=== PATIENT | female | born 1955 | race Caucasian/White ===

== ENCOUNTER → 2018-01-03 07:41 | Outpatient (CLI) | payer BC | END | disposition home or self-care (01) | LOC: D.MRI 12-31 17:00 | DX: S01.81XA Laceration without foreign body of other part of head, initial encounter (principal); X58.XXXA Exposure to other specified factors, initial encounter; Y93.9 Activity, unspecified; Y92.9 Unspecified place or not applicable ==

== ENCOUNTER → 2019-08-21 07:52 | Outpatient (CLI) | payer MEDICARE, BC ==
--- NOTE | 2019-08-28 11:25 | EC ---
PATIENT:GARCIA VILLELA DATE OF SERVICE: 08/21/19 SEX: F MEDICAL RECORD: [id number] DATE OF : 53 [facility] AGE OF PATIENT: 64 ADMISSION DATE: 08/21/19 REFERRING PHYSICIAN: INTERPRETING PHYSICIAN: MARCO A LEE MD ECHOCARDIOGRAM REPORT ECHO CHARGES 4 ECHO COMPLETE Date: 08/21/19 CLINICAL DIAGNOSIS: CAD HX TRACE TR/MR ECHOCARDIOGRAPHIC MEASUREMENTS (adult normal given) AC root (d.<3.7cm) 3.0 cm LV Septum d (<1.2 cm> 1.0 cm Valve Excursion 1.5 cm LV Septum (systole) 1.2 cm Left Atria (s.<4.0cm> 2.8 cm LVPW d(<1.2cm) 1.3 cm RV (d.<2.3cm) 2.3 cm LVPW (sytole) 1.6 cm LV diastole(<5.6CM) 4.7 cm MV E-F(>70mm/sec) cm LV systole 3.7 cm LVOT Diameter 1.8 cm MV exc.(>10mm) 1.7 cm Est.ejection fraction (50-75%) % DOPPLER: LVIT cm/sec A 81.0 cm/sec E 53.0 cm/sec LA cm/sec RVSP 21 mmHg LVOT 87 cm/sec AOP1/2T m/s Asc. Ao 97 cm/sec RVOT 72 cm/sec RA cm/sec PA 109 cm/sec AV Gradient Peak 3.77 mmHg AV Mean 1.92 mmHg AV Area 2.6 cm MV Gradient Peak 4.67 mmHg MV Mean 2.12 mmHg MV Area cm COMMENTS: Health And Safety Trainer: 2 MATTHEW MCLEAN Pen Tender: 3 Dr. Melgar TAPE# PACS Pericardial Effusion N DATE OF SERVICE: Adequate 2D, color flow, spectral Doppler, and M-mode. No LVH. LV internal dimension is normal. Wall motion is normal. EF is greater than or equal to 55%. Aortic valve is tricuspid. No evidence of stenosis by Doppler interrogation. Left atrium is normal. Mitral valve shows no prolapse. Trace MR. Right-sided chambers are grossly normal. Trace TR. TRANSINT:[id number] Voice Confirmation ID: [id number] DOCUMENT ID: [id number] ECHOCARDIOGRAM REPORT [id number] GARCIA VILLELA,MARCO A Swan MD at 1125 CC: [id number] DICTATION DATE: 08/21/19 1310 RESIDENT CARE AIDE: 08/21/19 1532 DEP CLI 08/21/19 [facility] [address] [place] [address]
== END | disposition home or self-care (01) ==
LOC: D.HCCECHO 07:52
PROVIDERS: ATTEND Internal Medicine Interventional Cardiology
DX: I25.10 Atherosclerotic heart disease of native coronary artery without angina pectoris (principal)

== ENCOUNTER → 2019-10-01 11:43 | Outpatient (CLI) | payer MEDICARE, BC ==
[2019-10-01 12:10] LABS: BASOPHILS 0.7 % (0-2); HEMOGLOBIN 17.6 g/dL (12-16); IMMATURE GRANULOCYTES 0.1 % (0-5); LYMPHOCYTES 15.7 % (15-50); MCH 33.1 pg (26.0-34.0); MCHC 35.2 g/dL (31.0-37.0); MCV 94.2 fL (80.0-100.0); MEAN PLATELET VOLUME 9.5 fL (7.4-10.4); MONOCYTES 6.6 % (2-11); NEUTROPHILS 75.9 % (40-80); PLATELET COUNT 261 10x3/uL (130-400); RBC 5.31 10x6/uL (4.00-5.40); RDW 12.5 % (11.5-14.5); WBC 9.1 10x3/uL (4.8-10.8)
[2019-10-03 09:10] LABS: HEPATITIS C ANTIBODY <0.1 S/CO RAT (0.0-0.9)
== END | disposition home or self-care (01) ==
LOC: D.US 11:30
PROVIDERS: ATTEND Internal Medicine Gastroenterology
DX: E78.2 Mixed hyperlipidemia (principal); D75.1 Secondary polycythemia

== ENCOUNTER 2020-06-02 07:10 | Day surgery (SDC) | payer MEDICARE, BC ==
[~2020-06-02] VITALS: Ht 167.6 cm; Wt 67.7 kg
--- NOTE | ~2020-06-02 | HEMODYNAMI ---
PATIENT:GARCIA VILLELA MEDICAL RECORD: [id number] : 53 LOCATION:D.CAT ADMISSION DATE: 06/02/20 Generatedon:06/02/20209:05 Patient name: GARCIA VILLELA Patient #: [id number] SSN: [id number] : 1955 Date of study: 06/02/2020 Page: Of Hemodynamic Procedure Report Patient Data Patient Demographics Procedure consent was obtained First Name: GARCIA Gender: Female Last Name: TIKA : 1955 Middle Initial: L Age: 65 year(s) Patient #: [id number] Race: SSN: [id number] Additional ID: [id number] Contact details Address: [address] [place] [address] [facility] State: [place] City: [place] Zip code: [address] Admission Admission Data Admission Date: 06/02/2020 Admission Time: 7:10 Arrival Date: 06/02/2020 Arrival Time: 0:00 Admit Source: Other Insurance Payor: Medicare [facility] #: [id number] Height (in.): 66 BSA: 1.76 (m2) Height (cm.): 167.64 BMI: 23.94 (kg/m2) Weight (lbs.): 148.31 Weight (kg.): 67.27 Lab Results Lab Result Date: 06/02/2020 Lab Result Time: 0:00 Biochemistry Name Units Result Min Max BUN mg/dl 15 --(--*-)-- 7 18 Creatinine mg/dl 0.8 --(-*--)-- 0.6 1.3 eGFR ml/min 76.26510 *-(----)-- 90 120 NONAFRICAN CBC Name Units Result Min Max Hematocrit % 50 --(--*-)-- 42 54 Hemoglobin g/dl 17.4 --(---*)-- 13.5 17.5 Procedure Procedure Types Cath Procedure Diagnostic Procedure C [facility] w/Coronaries Sedation Charges Moderate Sedation up to 15 minutes Procedure Description Procedure Date Procedure Date: 06/02/2020 Procedure Start Time: 8:50 Procedure End Time: 9:00 Procedure Staff Name Function Junaid Velasquez MD Performing Physician Renetta Stapleton RT Monitor Jenna Anderson RT Scrub Jaycee Bro RN Nurse Procedure Data Cath Procedure Fluoroscopy Diagnostic fluoroscopy Total fluoroscopy Time: 1.3 time: 1.3 min min Diagnostic fluoroscopy Total fluoroscopy dose: 487 dose: 487 mGy mGy Contrast Material Contrast Material Type Amount (ml) Isovue 300 71 Entry Location Entry Primary Successful Side Size Upsize Upsize Entry Closure Succes sful Closure Location (Fr) 1 (Fr) 2 (Fr) Remarks Device Remarks Femoral Right 5 Fr Exoseal artery Estimated blood loss: 5 ml Diagnostic catheters Device Type Used For End Catheter Placement MULTIPACK JL 4.0 5Fr Left Coronary catheter Angiography MULTIPACK 3DRC 5Fr Right Coronary catheter Angiography MULTIPACK Pigtail 5 Fr LV Angiography catheter Procedure Complications No complications Procedure Medications Medication Administration Route Dosage Oxygen etCO2 Nasal cannula 2 l/min Lidocaine 2% added to field 20 Heparin Flush Bag added to field 2 bags (1000units/500ml NS) 0.9% NaCl I.V. 100 ml/hr Versed I.V. 1 mg Fentanyl I.V. 50 mcg Versed I.V. 1 mg Fentanyl I.V. 50 mcg Versed I.V. 1 mg Fentanyl I.V. 50 mcg Versed I.V. 1 mg Fentanyl I.V. 50 mcg Hemodynamics Rest BSA: 1.76 (m2) HGB: 17.4 (g/dl) O2 Consumption: Estimated: 169.81 (ml/min) O2 Co nsumption indexed: Estimated:96.48 (ml/min/m) Heart Rate: 79 (bpm) Pressure Samples Time Site Value (mmHg) Purpose Heart Use Rate(bpm) 8:57 LV 115/13,17 Snapshot 73 Gradients Valve Time Site Site Mean SEP/DFP Peak To Heart Use 1 2 (mmHg) (sec/min) Peak Rate (mmHg) (bpm) Aortic 8:57 LV AO 84 Snapshots Pre Cath Intra NCS Post Cath Vital Signs Time Heart Resp SPO2 etCO2 NIBP (mmHg) Rhythm Pain Sedation Rate (ipm) (%) (mmHg) Status Level (bpm) 8:40:25 78 13 98 37.4 102/64(84) NSR 0 (11) 10(A) , No pain 8:45:35 79 11 97 38.9 96/60(85) NSR 0 (11) 10(A) , No pain 8:52:14 81 15 95 2.2 110/71(81) NSR 0 (11) 10(A) , No pain 8:56:20 84 23 99 37.4 118/76(100) NSR 0 (11) 9(A) , No pain 9:00:28 86 13 99 31.5 126/81(96) NSR 0 (11) 9(A) , No pain 9:03:13 84 16 100 38.2 129/79(98) NSR 0 (11) 10(A) , No pain Medications Time Medication Route Dose Verified Delivered Reason Notes Effe ctiveness by by 8:40:29 Oxygen etCO2 2 Junaid Buffie used for Nasal l/min EvaArnold Bro digital marketing coordinator cannula 8:40:35 Lidocaine 2% added 20ml Junaid Junaid for local to vial [facility] anesthetic field MD JUNG 8:40:41 Heparin Flush added 2 Junaid Junaid used for Bag to bags [facility] procedure (1000units/500ml field MD JUNG NS) 8:40:50 0.9% NaCl I.V. 100 Junaid Buffie Per ml/hr St Arnold Bro RN physician 8:43:27 Versed I.V. 1 mg Junaid Buffie for Eva Bro RN sedation 8:43:35 Fentanyl I.V. 50 Junaid Buffie for [facility] Eva Bro RN sedation 8:47:43 Versed I.V. 1 mg Junaid Buffie for Eva Bro RN sedation 8:47:46 Fentanyl I.V. 50 Junaid Buffie for [facility] Eva Bro RN sedation 8:51:55 Versed I.V. 1 mg Junaid Buffie for Eva Bro RN sedation 8:52:00 Fentanyl I.V. 50 Junaid Buffie for [facility] Eva Bro RN sedation 8:55:53 Versed I.V. 1 mg Junaid Buffie for Eva Bro RN sedation 8:56:57 Fentanyl I.V. 50 Junaid Buffie for [facility] Eva Bro RN sedation Procedure Log Time Note 8:25:23 Informed consent obtained and on chart 8:25:48 Diagnostic Cath Status : Elective 8:26:00 Jaycee Bro RN sent for patient. Start room use. 8:27:12 Arrival Date: 06/02/2020 12:00:00 AM 8:27:13 Admit Source: Other 8:27:18 Insurance Payor : Medicare 8:28:36 Patient Height : 66 inches 8:28:42 Patient Weight : 148.31 lbs 8:30:38 Lab Result : eGFR NONAFRICAN 76.99624 ml/min 8::38 Lab Result : Creatinine 0.8 mg/dl 8::38 Lab Result : BUN 15 mg/dl 8::38 Lab Result : Hemoglobin 17.4 g/dl 8::38 Lab Result : Hematocrit 50 % 8:30:42 ACC Patient presents with Stable Angina CCS Anginal Class 2--Slight limitation of ordinary activity. 8:30:45 Procedure Status Elective Heart Cath (OP). 8:30:54 Time tracking: Regular hours (M-F 7:00 - 5:00) 8:30:59 Plan of Care:Hemodynamics will remain stable., Cardiac rhythm will remain stable., Comfort level will be maintained., Respiratory function will remain adequate., Patient/ family verbilizes understanding of procedure., Procedure tolerated without complication., Recovers from procedure without complications.. 8:31:09 H&P Date Dictated: 05/26/2020 Within 30 days and on chart.. 8:31:10 Pre-procedure instructions explained to patient. 8:31:11 Pre-op teaching completed and patient verbalized understanding. 8:31:14 Family in waiting room. 8:31:15 Patient NPO since Midnight. 8:31:20 Alarms reviewed by R. N. 8:31:20 Sharps counted by scrub and verified by R.N. 8:31:28 Lab results completed and on chart. 8:32:40 Patient received from Pre/Post Procedure Room to CCL 1 Alert and oriented. Tansferred to table in Supine position. 8:32:42 Warm blankets applied, and lizette hugger turned on for patient comfort. 8:32:42 Correct patient and procedure confirmed by team. 8:32:43 ECG and BP/O2 sat monitors applied to patient. 8:34:36 Rhythm: sinus rhythm 8:39:20 Is the patient allergic to Iodine/contrast media? No. 8:39:21 Was the patient premedicated? Yes 8:39:21 Is patient on blood thinner?No 8:39:28 Patient diabetic? No. 8:39:32 Previous problem with sedation/anesthesia? No ? 8:39:33 Snore? Yes 8:39:34 Sleep apnea? No 8:39:36 Deviated septum? No 8:39:38 Opens mouth fully? Yes 8:39:41 Sticks out tongue? Yes 8:39:46 Airway obstruction? No ? 8:39:48 Dentures? No ? 8:39:53 Pre procedure: right dorsailis pedis pulse 2+ Normal; easily identifiable; not easily obliterated 8:39:55 Pre procedure: left dorsailis pedis pulse 2+ Normal; easily identifiable; not easily obliterated 8:40:00 Patient pain scale 0/10 ?. 8:40:07 IV patent on arrival in left forearm with 0.9% NaCl at [facility]. 8:40:13 Right groin area was prepped with chlora-prep and draped in sterile fashion 8:40:16 Physician arrived 8:40:16 --------ALL STOP TIME OUT------ 8:40:17 Final Timeout: patient, procedure, and site verified with staff and physician. All members of the team are in agreement. 8:40:19 Right groin site verified by team. 8:40:24 Fire Safety Assessment: A--An alcohol-based skin anteseptic being used preoperatively., C--Open oxygen or nitrous oxide is being used., D--An ESU, laser, or fiber-optic light is being used. 8:40:27 Physical assessment completed. ASA score P 2 - A patient with mild systemic disease as per Junaid Velasquez MD. 8:40:29 Oxygen 2 l/min etCO2 Nasal cannula was administered by Jaycee Bro RN; used for procedure; Verbal order read back and verified. 8:40:35 Lidocaine 2% 20ml vial added to field was administered by Junaid Velasquez MD; for local anesthetic; Verbal order read back and verified. 8:40:38 2) 60-89 Mildly reduced kidney function, and other findings (as for stage 1) point to kidney disease. 8:40:41 Heparin Flush Bag (1000units/500ml NS) 2 bags added to field was administered by Junaid Velasquez MD; used for procedure; Verbal order read back and verified. 8:40:50 0.9% NaCl 100 ml/hr I.V. was administered by Jaycee Bro RN; Per physician; Verbal order read back and verified. 8:40:57 Maximum allowable contrast dose (3.7 X eGFR X 0.75)210 ml. 8:41:01 Sedation plan: IV Moderate Sedation Medication:Versed, Fentanyl 8:41:05 Use device set Femoral Dx 8:41:06 ACIST Syringe (90702) opened to sterile field. 8:41:06 Bag Decanter (2002S) opened to sterile field. 8:41:07 Medline Cath Pack ([id number]) opened to sterile field. 8:41:08 ACIST Hand Control (18278) opened to sterile field. 8:41:09 ACIST Manifold (18258) opened to sterile field. 8:41:09 DIAGNOSTIC Multipack 5Fr catheter set ([id number]) opened to sterile field. 8:41:10 Tegaderm 4 x 4 (1626W) opened to sterile field. 8:41:11 SHEATH 5FR Bronaugh (WMG380) opened to sterile field. 8:41:11 EMERALD Guide Wire (431-559) opened to sterile field. 8:43:19 Vital chart was started 8:43:27 Versed 1 mg I.V. was administered by Jaycee Bro RN; for sedation; Verbal order read back and verified. 8:43:35 Fentanyl 50 mcg I.V. was administered by Jaycee Bro RN; for sedation; Verbal order read back and verified. 8:44:29 Baseline sample Acquired. 8:47:43 Versed 1 mg I.V. was administered by Jaycee Bro RN; for sedation; Verbal order read back and verified. 8:47:46 Fentanyl 50 mcg I.V. was administered by Jaycee Bro RN; for sedation; Verbal order read back and verified. 8:50:53 Procedure started. 8:50:53 Full Disclosure recording started 8:50:59 Local anesthetic to right femoral artery with Lidocaine 2% by Junaid Velasquez MD.INITIAL ACCESS ONLY 8:51:08 A 5 Fr sheath was inserted into the Right Femoral artery 8:51:34 A MULTIPACK JL 4.0 5Fr catheter was advanced over the wire and used for Left Coronary Angiography. 8:51:55 Versed 1 mg I.V. was administered by Jaycee Bro RN; for sedation; Verbal order read back and verified. 8:52:00 Fentanyl 50 mcg I.V. was administered by Jaycee Bro RN; for sedation; Verbal order read back and verified. 8:52:06 LCA angiography performed. 8:52:09 Injector settings: Ml/sec: 3, Volume: 6, 8:54:27 Catheter removed. 8:54:37 A MULTIPACK 3DRC 5Fr catheter was advanced over the wire and used for Right Coronary Angiography. 8:55:53 Versed 1 mg I.V. was administered by Jaycee Bro RN; for sedation; Verbal order read back and verified. 8:55:53 RCA angiography performed. 8:55:57 Injector settings: Ml/sec: 3, Volume: 6, 8:56:01 Catheter removed. 8:56:07 A MULTIPACK Pigtail 5 Fr catheter was advanced over the wire and used for LV Angiography. 8:56:57 Fentanyl 50 mcg I.V. was administered by Jaycee Bro RN; for sedation; Verbal order read back and verified. 8:57:16 LV hemodynamics recorded. 8:57:18 LV gram done using DELUNA 8:57:20 Injector settings: Ml/sec: 5, Volume: 15, 8:57:29 EF : 55 % 8:57:55 Catheter removed. 8:57:58 EXOSEAL 5Fr (EX500) opened to sterile field. 8:58:49 Sheath removed intact; hemostasis achieved with Exoseal to the Right Femoral artery. 8:58:50 Procedure ended.(Physican Out) 8:59:07 Fluoroscopy time 01.30 minutes. 8:59:15 Fluoroscopy dose: 487 mGy 8:59:15 Flurop Dose total: 487 8:59:25 Dose Area Product 68524 mGy/cm. 8:59:30 Contrast amount:Isovue 300 71ml. 8:59:32 Maximum allowable dose exceeded? No. 8:59:33 Sharps counted by scrub and verified by R.N. 8:59:33 Insertion/operative site no bleeding no hematoma. 8:59:36 Post-op/insertion site Right Femoral artery dressed using a 4 x 4 and Tegaderm. 8:59:38 Post Procedure Pulses reassessed and unchanged 8:59:41 Post procedure rhythm: unchanged. 8:59:43 Estimated blood loss: 5 ml 8:59:45 Post procedure instruction explained to patient.Patient verbalizes understanding. 8:59:46 Patient needs reinforcement of post procedure teaching. 9:00:20 Procedure type changed to Cath procedure, Diagnostic procedure, LHC, [facility] w/Coronaries, Sedation Charges, Moderate Sedation up to 15 minutes 9:00:21 Procedure and supply charges have been captured, reviewed, submitted and are correct. 9:00:25 Procedure Complication : No complications 9:00:27 Vital chart was stopped 9:00:30 [facility] Findings: MVD- CABG consult 9:00:33 Operative report dictated upon procedure completion. 9:00:34 See physician's report for complete and final results. 9:00:36 Report given to Pre/Post Procedure Room. 9:00:39 Patient transfered to Pre/Post Procedure Room with Stretcher. 9:00:41 Procedure ended. 9:00:41 Full Disclosure recording stopped 9:00:45 End room use (Document Last) 9:01:33 End room use (Document Last) 9:02:30 End room use (Document Last) Device Usage Item Name Manufacture Quantity Catalog Hospital Part Current Minimal L ot# / Number Charge Number Stock Stock Serial# Code ACIST Acist 1 31844 [id number] 419809 [id number] 20 Syringe Medical (75180) Systems Inc Bag Microtek 1 603828 78426 995672 5 Decanter Medical Inc. () Medline Medline 1 [id number] 951849 69527 924207 5 Cath Pack ([id number]) ACIST Hand Acist 1 43081 128982 212289 016912 5 Control Medical (67102) Systems Inc ACIST Acist 1 13878 002984 856080 965050 5 Manifold Medical (98620) Systems Inc DIAGNOSTIC Cardinal 1 [id number] 878767 90799 621606 30 [facility]ipgriffin [facility] Health 5Fr catheter set (YJ7347) Tegaderm 4 3M 1 1626W 502830 029853 624628 5 x 4 (1626W) SHEATH 5FR Terumo 1 [id number] 778058 300419 888656 5 Bronaugh (EFJ654) EMERALD Cardinal 1 502-455 009597 037454 258231 5 Guide Wire [facility] (929-137) MULTIPACK Cardinal 1 368165 5 JL 4.0 5Fr Health catheter MULTIPACK Cardinal 1 622801 5 3DRC 5Fr Health catheter MULTIPACK Cardinal 1 105454 5 Pigtail 5 Health Fr catheter EXOSEAL 5Fr Cardinal 1 EX500 026950 593083 497926 10 (EX500) Health Signature Audit [place] Stage Time Signature Unsigned Intra-Procedure 06/02/2020 Renetta Stapleton 9:01:33 AM RT(R) Intra-Procedure 06/02/2020 Jaycee Bro RN 9:02:30 AM Intra-Procedure 06/02/2020 Junaid Real 9:05:44 AM Arnold [place] [address] [place] [address]
[2020-06-02] MEDS ORDERED: NITROQUICK0.4 MG SL (07:27)
[2020-06-02] MEDS ORDERED: XALATAN 0.0052.5 ML EACH EYE (07:27)
[2020-06-02] MEDS ORDERED: PEPCID40 MG PO (07:28)
[2020-06-02] MEDS ORDERED: BYSTOLIC5 MG PO (07:28)
[2020-06-02] MEDS ORDERED: PRALUENT P75 MG/1 ML SC (07:28)
[2020-06-02] MEDS ORDERED: ALDACTONE25 MG PO (07:28)
[2020-06-02] MEDS ORDERED: PRISTIQ50 MG PO (07:29)
[2020-06-02] MEDS ORDERED: BAYER CHEWABLE81 MG PO (07:29)
[2020-06-02 07:49] VITALS: BP 122/74; Ht 167.6 cm; Wt 67.7 kg
[2020-06-02 07:55] LABS: BASOPHILS 0.5 % (0-2); EOSINOPHILS 2.1 % (0-7); HEMOGLOBIN 17.4 g/dL (12-16); IMMATURE GRANULOCYTES 0.1 % (0-5); LYMPHOCYTES 11.6 % (15-50); MCH 32.8 pg (26.0-34.0); MCHC 34.8 g/dL (31.0-37.0); MCV 94.3 fL (80.0-100.0); MEAN PLATELET VOLUME 9.5 fL (7.4-10.4); MONOCYTES 7.3 % (2-11); NEUTROPHILS 78.4 % (40-80); PLATELET COUNT 229 10x3/uL (130-400); RDW 12.4 % (11.5-14.5); WBC 9.1 10x3/uL (4.8-10.8)
[2020-06-02 08:05] LABS: ALT (SGPT) 49 U/L (10-68); CALC OSMOLALITY 278 mosm/kg (275-300); CALCIUM 9.5 mg/dL (8.5-10.1); CARBON DIOXIDE 24.4 mmol/L (21.0-32.0); CHLORIDE - SERUM 103 mmol/L (98-107); CHOLESTEROL, TOTAL 204 mg/dL (0-200); CREATININE - SERUM 0.8 mg/dL (0.6-1.3); GLUCOSE 132 mg/dL (74-106); HDL CHOLESTEROL 67 mg/dL (32-96); LDL CHOLESTEROL 107 mg/dL (0-100); LDL-HDL RATIO 1.6 ratio (1.5-3.5); POTASSIUM - SERUM 3.9 mmol/L (3.5-5.1); SODIUM 138 mmol/L (136-145); TRIGLYCERIDE 153 mg/dL (30-200); UREA NITROGEN 15 mg/dL (7-18); eGFR NON AFRICAN AMERICAN 76 mL/min (90-120)
--- NOTE | 2020-06-02 09:15 | NUR ---
PT RECEIVED VIA STRETCHER FROM [employer]IPMENT [employer] FOR RECOVERY. PT AWAKE, BUT A LITTLE DROWSY. PT DENIES PAIN OR DISCOMFORT AT THIS TIME. IV PATENT INFUSING VIA ORDERS TO L ARM. 5FR EXOCELE TO R GROIN, DRESSING CDI NO S/S HEMATOMA OR BLEEDING. LEG PINK AND WARM, PEDAL PULSES PALPABLE. PT INSTRUCTED TO KEEP HEAD ON PILLOW AND LEG STRAIGHT. CARDIAC MONITORS PLACED AND O2 VIA NC AT 2L. HR NSR RATE 79, BP 111/67, RR 12, SAT 99. AT BS, CALL LIGHT IN REACH. DR LEE WAS IN ROOM PRIOR TO PT ARRIVAL, SPOKE WITH REGARDING PLAN OF CARE AND PROCEDURE RESULTS.
--- NOTE | 2020-06-02 09:45 | NUR ---
PT RESTING COMFORTABLY, R GROIN SOFT, DRESSING CDI NO S/S HEMATOMA OR BLEEDING. LEG PINK AND WARM, PEDAL PULSES PALPABLE. VSS AT PRESENT. REMAINS AT BS, CALL LIGHT IN REACH
--- NOTE | 2020-06-02 10:18 | NUR ---
DR RUIZ AND NURSE AT , DISCUSSING SURGERY OPTIONS AND PLAN.
--- NOTE | 2020-06-02 10:31 | NUR ---
GROIN REMAINS SOFT, NO S/S HEMATOMA OR BLEEDING. PT DENIES PAIN OR NEEDS AT THIS TIME. TOLERATING PO FLUIDS, OFFERED SANDWICH BUT SHE DELINES AT THIS TIME. CALL LIGHT IN REACH, AT BS
--- NOTE | 2020-06-02 10:53 | NUR ---
DISCHARGE INSTRUCTIONS REVIEWED W PT, SHE VERBALIZED UNDERSTANDING. IV REMOVED W CATH INTACT, MONITORS REMOVED. GROIN SOFT, NO S/S HEMATOMA. PT UP TO DRESS FOR DISCHARGE
--- NOTE | 2020-06-02 11:00 | NUR ---
PT DISCHARGED VIA WC TO PRIVATE VEHICLE TO WAITING. PT HAD ALL BELONGINGS AND DISCHARGE PAPERWORK.
--- NOTE | 2020-06-03 10:47 | OP ---
PATIENT NAME: GARCIA VILLELA MEDICAL RECORD: [id number] :53 LOCATION:D.CAT ADMISSION DATE: SURGEON: MARCO A LEE MD DATE OF OPERATION: 06/02/2020 PROCEDURE: Left heart catheterization, selective coronary angiography, right femoral artery approach. CATHETERS: A 5-Danish sheath, 5/4 left and right Lisseth, 5/4 pig. The procedure was well tolerated. The patient returned to the pizano. Sheath removed. ExoSeal device placed. FINDINGS: Left ventriculography in 30-degree DELUNA view: Normal wall motion. Normal systolic function. CORONARY ANATOMY: LEFT MAIN: Tapers to about 30% stenosis. Then, there is a stenosis involving a large diagonal and LAD, 70% to 80% of the LAD. The diagonal is a large graft vessel with 90%. CIRCUMFLEX: Circumflex is occluded at the distal portion of previously placed stent with [id number]-[id number] collaterals. RIGHT CORONARY ARTERY: Proximal stenosis of 80%. IMPRESSION: Multivessel coronary artery disease with LAD and diagonal essentially left main equivalent. [facility] appears to be coronary bypass grafting as opposed to multivessel intervention. We will consult Dr. Fall for that purpose. NTS:[id number] Voice Confirmation ID: [id number] DOCUMENT ID: [id number] MARCO A LEE MD at 1047 CC: [id number] DICTATION DATE: 06/02/20911 SENIOR JAVASCRIPT DEVELOPER: 06/02/201910 [facility] 06/02/20 [facility] [address] [place] [address]
== END 2020-06-02 11:00 | disposition home or self-care (01) ==
LOC: D.CATH 07:10
PROVIDERS: ATTEND Internal Medicine Interventional Cardiology
DX: R07.9 Chest pain, unspecified (principal); R06.00 Dyspnea, unspecified; I25.10 Atherosclerotic heart disease of native coronary artery without angina pectoris; E78.5 Hyperlipidemia, unspecified; R53.81 Other malaise

== ENCOUNTER 2020-06-07 08:47 | Inpatient (IN) | payer MEDICARE, BC ==
[~2020-06-07] VITALS: Ht 167.6 cm; Wt 77.3 kg
[~2020-06-07 08:47] MED LIST: ALDACTONE25 MG PO; BAYER CHEWABLE81 MG PO; BYSTOLIC5 MG PO; NITROQUICK0.4 MG SL; PEPCID40 MG PO; PRALUENT P75 MG/1 ML SC; PRISTIQ50 MG PO; XALATAN 0.0052.5 ML EACH EYE
[2020-06-07 09:48] LABS: BASOPHILS 0.5 % (0-2); EOSINOPHILS 0.6 % (0-7); HEMATOCRIT 50.1 % (36.0-48.0); IMMATURE GRANULOCYTES 0.1 % (0-5); LYMPHOCYTES 13.7 % (15-50); MCH 32.3 pg (26.0-34.0); MCHC 33.9 g/dL (31.0-37.0); MCV 95.1 fL (80.0-100.0); MEAN PLATELET VOLUME 9.4 fL (7.4-10.4); MONOCYTES 8.3 % (2-11); NEUTROPHILS 76.8 % (40-80); PLATELET COUNT 229 10x3/uL (130-400); RBC 5.27 10x6/uL (4.00-5.40); RDW 12.2 % (11.5-14.5); WBC 7.8 10x3/uL (4.8-10.8)
[2020-06-07 09:50] LABS: BILIRUBIN NEGATIVE (NEGATIVE); KETONE NEGATIVE (NEGATIVE); NITRITE NEGATIVE (NEGATIVE); UROBILINOGEN NORMAL mg/dL (< 2)
[2020-06-07 09:58] LABS: APTT 26.4 SECONDS (22.8-39.4); INR 0.94 (0.85-1.17); PROTIME 12.6 SECONDS (11.6-15.0)
[2020-06-07] MEDS ORDERED: PROAIR HFA8.5 G1 INH (10:10)
[2020-06-07] MEDS ORDERED: BUSPAR5 MG (10:12)
[2020-06-07 10:13] LABS: ALBUMIN 3.9 g/dL (3.4-5.0); ANION GAP 9.7 mmol/L (8-16); BILIRUBIN - TOTAL 0.68 mg/dL (0.2-1.3); CALCIUM 9.7 mg/dL (8.5-10.1); CARBON DIOXIDE 28.2 mmol/L (21.0-32.0); CREATININE - SERUM 0.9 mg/dL (0.6-1.3); PHOSPHOROUS 3.6 mg/dL (2.5-4.9); POTASSIUM - SERUM 3.9 mmol/L (3.5-5.1); T4 THYROXIN - FREE 0.89 ng/dL (0.76-1.46); THYROID STIMULATING HORMONE 2.62 uIU/mL (0.36-3.74); URIC ACID 4.3 mg/dL (2.6-7.2)
[2020-06-07] MEDS ORDERED: NICODERM CQ1 EAC3 TOPICAL (10:14)
[2020-06-10] VITALS (47 sets, daily range): BP systolic 95–139; BP diastolic 49–859; BMI 23.9; BMI 26.5
--- NOTE | 2020-06-10 16:40 | NUR ---
1238 PT ARRIVED TO UNIT WITH ANESTHESIA AND OR STAFF AT BEDSIDE. BP UNSTABLE - ANESTHESIA TITRATING KENNY/NITRO TO EFFECT. 1250 ANESTHESIA LEFT BEDSIDE. THIS NURSE WILL TITRATE GTTS TO EFFECT. 1258 250ML PLASMALYTE BOLUS OVER [address] RUIZ. 1324 VENT RATE TO 10 - SIMV. PT TOLERATED WELL. 1351 VENT RATE TO 6 - SIMV. PT TOLERATED WELL. 1451 VENT RATE TO 4 - SIMV. PT TOLERATED WELL. 1500 CPAP STARTED. 1606 VC 889, NIF 28, RSVI 26, ABG'S OBTAINED, DR RUIZ NOTIFIED - OKAY TO EXTUBATE AT [address] RUIZ. 1615 PT EXTUBATED TO 4L NC, TOLERATING WELL. TITRATING GTTS TO EFFECT.
--- NOTE | 2020-06-10 19:00 | NUR ---
REPORT RECEIVED. PT AAOX4, NEW ONSET C/O CHEST PAIN 11/10. BP 50/28 ON ART LINE, DR RUIZ NOTIFIED, NEW ORDERS RECEIVED.
[2020-06-11] VITALS (86 sets, daily range): BP systolic 78–118; BP diastolic 43–79; Ht 167.6 cm; Wt 77.3 kg
[2020-06-11 05:55] LABS: BASOPHILS 0.2 % (0-2); EOSINOPHILS 0.1 % (0-7); HEMATOCRIT 37.1 % (36.0-48.0); HEMOGLOBIN 12.4 g/dL (12-16); IMMATURE GRANULOCYTES 0.1 % (0-5); LYMPHOCYTES 7.2 % (15-50); MCHC 33.4 g/dL (31.0-37.0); MCV 95.9 fL (80.0-100.0); MEAN PLATELET VOLUME 9.6 fL (7.4-10.4); NEUTROPHILS 81.4 % (40-80); RBC 3.87 10x6/uL (4.00-5.40); RDW 12.5 % (11.5-14.5); WBC 12.2 10x3/uL (4.8-10.8)
[2020-06-11 05:56] LABS: PLATELET COUNT 167 10x3/uL (130-400)
[2020-06-11 06:20] LABS: ALBUMIN 2.6 g/dL (3.4-5.0); ALKALINE PHOSPHATASE 55 U/L (30-120); ALT (SGPT) 26 U/L (10-68); BILIRUBIN - TOTAL 0.51 mg/dL (0.2-1.3); CALC OSMOLALITY 282 mosm/kg (275-300); CALCIUM 7.6 mg/dL (8.5-10.1); CHLORIDE - SERUM 108 mmol/L (98-107); CREATININE - SERUM 0.7 mg/dL (0.6-1.3); GLUCOSE 151 mg/dL (74-106); POTASSIUM - SERUM 3.8 mmol/L (3.5-5.1); PROTEIN - SERUM 5.2 g/dL (6.4-8.2); SODIUM 141 mmol/L (136-145); UREA NITROGEN 9 mg/dL (7-18); eGFR NON AFRICAN AMERICAN 89 mL/min (90-120)
--- NOTE | 2020-06-11 11:42 | OP ---
PATIENT NAME: GARCIA VILLELA MEDICAL RECORD: [id number] :53 LOCATION:D.CVI D.CV06 ADMISSION DATE:06/10/20 SURGEON: CASTILLO RUIZ MD DATE OF OPERATION: 06/10/2020 SURGEON: Castillo Ruiz MD PROCEDURES PERFORMED: 1. Coronary artery bypass graft times 4 (left internal mammary artery to LAD, reverse saphenous vein graft from aorta to ramus intermedius, aorta to obtuse marginal, aorta to right coronary artery). 2. Endoscopic saphenous vein harvest. PREOPERATIVE DIAGNOSIS: Coronary artery disease. POSTOPERATIVE DIAGNOSIS: Coronary artery disease. ANESTHESIA: General endotracheal anesthesia. ESTIMATED BLOOD LOSS: Total cardiopulmonary bypass with Cell Saver retransfusion. COMPLICATIONS: None. SPECIMENS: None. CONDITION: Stable. DISPOSITION: CVICU. OPERATIVE FINDINGS: 1. Transesophageal echocardiography with good contractility before and after cardiopulmonary bypass. 2. Good quality greater saphenous vein, but a small incision was required at the right groin to secure the proximal end of the saphenous vein. 3. Good quality left internal mammary artery. The LAD was 2.0 mm and deep intraepicardial with good signal after anastomosis and after reversal of heparin. 4. Ramus intermedius, bifurcating vessel 1.5 mm with severe disease beyond the bifurcation. 5. First obtuse marginal 1.5 mm and intramyocardial. 6. No distal obtuse marginal seen. 7. Right coronary artery 1.5 mm and thin walled. OPERATIVE INDICATIONS: Coronary artery disease. PROCEDURE IN DETAIL: The patient was brought to the operating suite. General anesthesia was obtained. The patient was prepped and draped. Greater saphenous vein harvested in the right lower extremity utilizing endoscopic technique. Side branches were divided with electrocautery and the vessel was ligated proximally and distally and removed. Side branches were tied and thin sites were oversewn. The leg was later closed in 2 layers. Median sternotomy incision was made. Subcutaneous tissue was divided with electrocautery. The sternum was divided with a saw. Left hemisternum was OPERATIVE REPORT [id number] GARCIA VILLELA elevated. Left lower cavity was entered. Left internal mammary artery and vein were taken down as a pedicle graft. Sternal retractor was placed. Pericardium was opened. Heparin was given. Aorta was cannulated. Dual-stage venous cannula was inserted. Internal mammary was clipped distally and made ready for anastomosis. Activated clotting time was appropriately elevated and the patient was placed on cardiopulmonary bypass. Sites for distal anastomoses were selected. Antegrade cardioplegia needle was inserted. The patient's temperature drifted downwardly, cross-clamp was placed, and cardioplegia given antegrade. This was repeated at 15- to 20-minute intervals including down the completed vein grafts. Distal anastomosis was performed in standard technique, proximal anastomosis in single cross-clamp technique. Aortic root was deaired with the patient in Trendelenburg position. The cross-clamp was removed. Aortic root deaired. Proximal anastomosis tied down. Vein grafts deaired and flow restored. Proximal and distal anastomotic sites inspected for bleeding. A single 6-0 in the proximal to the right. The patient resumed a spontaneous sinus rhythm and weaned from cardiopulmonary bypass after full rewarming. The patient decannulated. Cannula sites were oversewn. Protamine was given. Thorough irrigation was undertaken. Hemostasis was ensured. Drains were placed in the mediastinum and left pleural cavity. Ventricular pacing wires were placed. Pericardial fat was loosely reapproximated. The left chest evacuated and irrigated. The internal mammary harvest site inspected for bleeding. Sternum was closed with wires. Fascia was closed. Subcutaneous tissue was closed. Skin was closed. Dermabond was placed. The needle and sponge counts were reported as correct and the patient was taken to ICU in stable condition. NTS:[id number] Voice Confirmation ID: [id number] DOCUMENT ID: [id number] CASTILLO RUIZ MD at 1142 CC: ANGELA BRANDT MD and MARCO A LEE MD [id number] DICTATION DATE: 06/10/20 1316 SLAG SKIMMER: 06/10/20 2016 ADM IN [facility] [address] [place] [address]
--- NOTE | 2020-06-11 18:51 | NUR ---
0845-R DILIP FIELDS D/C-PER ORDER-TIP INTACT-NO HEMATOMA NOTED
[2020-06-12] VITALS (92 sets, daily range): BP systolic 83–115; BP diastolic 44–77
[2020-06-12 06:45] LABS: BASOPHILS 0.1 % (0-2); EOSINOPHILS 0 % (0-7); HEMATOCRIT 30.4 % (36.0-48.0); HEMOGLOBIN 10.2 g/dL (12-16); IMMATURE GRANULOCYTES 0.1 % (0-5); LYMPHOCYTES 7.6 % (15-50); MCH 32.1 pg (26.0-34.0); MCHC 33.6 g/dL (31.0-37.0); MCV 95.6 fL (80.0-100.0); MONOCYTES 6.5 % (2-11); NEUTROPHILS 85.7 % (40-80); PLATELET COUNT 154 10x3/uL (130-400); RBC 3.18 10x6/uL (4.00-5.40); RDW 12.1 % (11.5-14.5); WBC 13.9 10x3/uL (4.8-10.8)
[2020-06-12 07:16] LABS: ALBUMIN 2.2 g/dL (3.4-5.0); ALKALINE PHOSPHATASE 55 U/L (30-120); ALT (SGPT) 26 U/L (10-68); BILIRUBIN - TOTAL 0.75 mg/dL (0.2-1.3); CALC OSMOLALITY 270 mosm/kg (275-300); CALCIUM 8.1 mg/dL (8.5-10.1); CARBON DIOXIDE 27.7 mmol/L (21.0-32.0); CHLORIDE - SERUM 104 mmol/L (98-107); CREATININE - SERUM 0.8 mg/dL (0.6-1.3); GLUCOSE 116 mg/dL (74-106); POTASSIUM - SERUM 3.4 mmol/L (3.5-5.1); SODIUM 136 mmol/L (136-145); UREA NITROGEN 7 mg/dL (7-18); eGFR NON AFRICAN AMERICAN 76 mL/min (90-120)
[2020-06-13] VITALS (73 sets, daily range): BP systolic 95–144; BP diastolic 50–88
[2020-06-13 06:46] LABS: BASOPHILS 0.1 % (0-2); EOSINOPHILS 0.1 % (0-7); HEMATOCRIT 29.7 % (36.0-48.0); HEMOGLOBIN 9.9 g/dL (12-16); IMMATURE GRANULOCYTES 0.2 % (0-5); LYMPHOCYTES 5.3 % (15-50); MCH 31.8 pg (26.0-34.0); MCHC 33.3 g/dL (31.0-37.0); MCV 95.5 fL (80.0-100.0); MEAN PLATELET VOLUME 9.7 fL (7.4-10.4); MONOCYTES 5.4 % (2-11); NEUTROPHILS 88.9 % (40-80); PLATELET COUNT 178 10x3/uL (130-400); RBC 3.11 10x6/uL (4.00-5.40); RDW 12.2 % (11.5-14.5); WBC 12.5 10x3/uL (4.8-10.8)
[2020-06-13 07:21] LABS: ALBUMIN 2.1 g/dL (3.4-5.0); ALKALINE PHOSPHATASE 62 U/L (30-120); ALT (SGPT) 27 U/L (10-68); BILIRUBIN - TOTAL 0.64 mg/dL (0.2-1.3); CALCIUM 8.5 mg/dL (8.5-10.1); CARBON DIOXIDE 28.1 mmol/L (21.0-32.0); CHLORIDE - SERUM 103 mmol/L (98-107); CREATININE - SERUM 0.7 mg/dL (0.6-1.3); GLUCOSE 114 mg/dL (74-106); POTASSIUM - SERUM 3.4 mmol/L (3.5-5.1); PROTEIN - SERUM 5.6 g/dL (6.4-8.2); SODIUM 137 mmol/L (136-145); eGFR NON AFRICAN AMERICAN 89 mL/min (90-120)
[2020-06-13 07:23] LABS: CALC OSMOLALITY 273 mosm/kg (275-300); UREA NITROGEN 10 mg/dL (7-18)
--- NOTE | 2020-06-13 10:22 | NUR ---
0915-DR RAMÍREZ AT BEDSIDE AND SPOKE WITH PT AWAKE AND YSNFH-QIANTEXW-LOSYJD OF 06/12/20-PT VOCALIZED BREATHNG EASIER ON OXIMYZER 8L-STATED L LATERAL PAIN PRESENT 01/10-NO FURTHER RESP DISTRESS-REQUESTED PT TO REMAIN BEDREST-UNTIL SEEN BY DR RUIZ THIS AM-INCENTIVE DONE [id number]--OXYCODONE 10MG PO GIVEN
--- NOTE | 2020-06-13 13:30 | NUR ---
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
--- NOTE | 2020-06-13 19:50 | NUR ---
SPOKE WITH PT DAUGHTER, ATTEMPTED TO UPDATE ON PT STATUS, SHE ASKED MULTIPLE QUESTIONS BECOMING MORE AND MORE AGITATED WITH EACH ONE AND FINALLY ASKED TO SPEAK TO THE CHARGE NURSE, ÁNGEL MEADOWS SPOKE WITH HER AND SHE WAS VERY AGITATED, CALL WAS TRANSFERRED TO CHARGE NURSE BAH.
--- NOTE | 2020-06-13 20:30 | NUR ---
REPORT RECEIVED AND CARE ASSUMED. PATIENT RECEIVED IN BED. AWAKE ALERT AND ORIENTED X 4. ASSESSMENT COMPLETED PER FLOW SHEET WITH NO ACUTE DISTRESS OBSERVED. MONITORS CONNECTED TO PATIENT WITH ALARMS SET. VSS. NSR ON MONITOR. WEARING BIPAP AT PRESENT AND DENIES ANY DYSPNEA/SOB. HECTOR DRAIN INTACT/SECURE/PATENT/COMPRESSED WITH MODERATE AMOUNT OF SEROSANG FLUID IN BULB. CALL LIGHT IN REACH AND ABLE TO UTILIZE TO MAKE NEEDS KNOWN. WILL CONTINUE CURRENT POC
--- NOTE | 2020-06-13 21:00 | NUR ---
AT BEDSIDE. UPDATE GIVEN AND QUESTIONS ANSWERED
[2020-06-14] VITALS (24 sets, daily range): BP systolic 92–128; BP diastolic 43–68
[2020-06-14 05:52] LABS: BASOPHILS 0.2 % (0-2); EOSINOPHILS 0.8 % (0-7); HEMATOCRIT 27.5 % (36.0-48.0); HEMOGLOBIN 9.1 g/dL (12-16); IMMATURE GRANULOCYTES 0.2 % (0-5); MCH 31.5 pg (26.0-34.0); MCHC 33.1 g/dL (31.0-37.0); MCV 95.2 fL (80.0-100.0); MEAN PLATELET VOLUME 9.4 fL (7.4-10.4); MONOCYTES 7.3 % (2-11); NEUTROPHILS 83.5 % (40-80); PLATELET COUNT 205 10x3/uL (130-400); RBC 2.89 10x6/uL (4.00-5.40); RDW 12.2 % (11.5-14.5)
[2020-06-14 06:42] LABS: ALBUMIN 1.7 g/dL (3.4-5.0); ALKALINE PHOSPHATASE 71 U/L (30-120); ALT (SGPT) 28 U/L (10-68); BILIRUBIN - TOTAL 0.61 mg/dL (0.2-1.3); CALC OSMOLALITY 274 mosm/kg (275-300); CALCIUM 8.1 mg/dL (8.5-10.1); CARBON DIOXIDE 29.1 mmol/L (21.0-32.0); CHLORIDE - SERUM 102 mmol/L (98-107); CREATININE - SERUM 0.7 mg/dL (0.6-1.3); GLUCOSE 117 mg/dL (74-106); PHOSPHOROUS 2.4 mg/dL (2.5-4.9); POTASSIUM - SERUM 3.1 mmol/L (3.5-5.1); PRO BNP 3334 pg/mL (0-125); PROTEIN - SERUM 5.5 g/dL (6.4-8.2); SODIUM 138 mmol/L (136-145); UREA NITROGEN 8 mg/dL (7-18); eGFR NON AFRICAN AMERICAN 89 mL/min (90-120)
[2020-06-14 07:02] LABS: C-REACTIVE PROTEIN 36.5 mg/dL (0.0-0.9)
[2020-06-14 08:59] LABS: ERYTHROCYTE SEDIMENTATION RATE 105 mm/hr (0-30)
--- NOTE | 2020-06-14 11:26 | NUR ---
Nutrition Follow-up: POD 4 CABG. Advanced to diabetic diet this AM. Pt reports eating >50% of breakfast. +BM today. Diet: Diabetic Wt: 166# (06/14) Labs noted: K+ 3.1, Glu 117, Ca 8.1, PO4 2.4, Alb 1.7 Meds noted: Florajen, Protonix, Humalog, Senokot, Colace -Encourage PO intake and honor food preferences within diet restrictions. -RD following.
[2020-06-15] VITALS (24 sets, daily range): BP systolic 100–129; BP diastolic 44–74
[2020-06-15 05:29] LABS: BASOPHILS 0.1 % (0-2); HEMATOCRIT 25.7 % (36.0-48.0); HEMOGLOBIN 8.5 g/dL (12-16); IMMATURE GRANULOCYTES 0.2 % (0-5); LYMPHOCYTES 8.4 % (15-50); MCH 31.6 pg (26.0-34.0); MCHC 33.1 g/dL (31.0-37.0); MCV 95.5 fL (80.0-100.0); MEAN PLATELET VOLUME 9.3 fL (7.4-10.4); MONOCYTES 8.1 % (2-11); NEUTROPHILS 82.2 % (40-80); RBC 2.69 10x6/uL (4.00-5.40); RDW 12.3 % (11.5-14.5); WBC 9.7 10x3/uL (4.8-10.8)
[2020-06-15 05:32] LABS: PLATELET COUNT 258 10x3/uL (130-400)
[2020-06-15 06:22] LABS: ALBUMIN 1.6 g/dL (3.4-5.0); ALKALINE PHOSPHATASE 69 U/L (30-120); ALT (SGPT) 28 U/L (10-68); BILIRUBIN - TOTAL 0.48 mg/dL (0.2-1.3); CALC OSMOLALITY 273 mosm/kg (275-300); CALCIUM 8.3 mg/dL (8.5-10.1); CARBON DIOXIDE 29.3 mmol/L (21.0-32.0); CHLORIDE - SERUM 103 mmol/L (98-107); CREATININE - SERUM 0.7 mg/dL (0.6-1.3); GLUCOSE 115 mg/dL (74-106); PROTEIN - SERUM 5.5 g/dL (6.4-8.2); SODIUM 137 mmol/L (136-145); UREA NITROGEN 9 mg/dL (7-18); eGFR NON AFRICAN AMERICAN 89 mL/min (90-120)
[2020-06-15 06:50] LABS: POTASSIUM - SERUM 3.6 mmol/L (3.5-5.1)
[2020-06-16] VITALS (20 sets, daily range): BP systolic 93–121; BP diastolic 45–70
[2020-06-16 04:49] LABS: HEMATOCRIT 28.4 % (36.0-48.0); HEMOGLOBIN 9.2 g/dL (12-16); MCH 31.4 pg (26.0-34.0); MCHC 32.4 g/dL (31.0-37.0); MCV 96.9 fL (80.0-100.0); MEAN PLATELET VOLUME 9.2 fL (7.4-10.4); RBC 2.93 10x6/uL (4.00-5.40); RDW 12.5 % (11.5-14.5); WBC 9.6 10x3/uL (4.8-10.8)
[2020-06-16 05:24] LABS: ALBUMIN 1.7 g/dL (3.4-5.0); ALKALINE PHOSPHATASE 72 U/L (30-120); ALT (SGPT) 25 U/L (10-68); BILIRUBIN - TOTAL 0.39 mg/dL (0.2-1.3); CALC OSMOLALITY 278 mosm/kg (275-300); CALCIUM 8.8 mg/dL (8.5-10.1); CARBON DIOXIDE 31.5 mmol/L (21.0-32.0); CHLORIDE - SERUM 105 mmol/L (98-107); CREATININE - SERUM 0.8 mg/dL (0.6-1.3); GLUCOSE 121 mg/dL (74-106); POTASSIUM - SERUM 3.5 mmol/L (3.5-5.1); PROTEIN - SERUM 5.9 g/dL (6.4-8.2); SODIUM 140 mmol/L (136-145); UREA NITROGEN 9 mg/dL (7-18); eGFR NON AFRICAN AMERICAN 76 mL/min (90-120)
--- NOTE | 2020-06-16 10:43 | TEE ---
PATIENT:GARCIA VILLELA MEDICAL RECORD: [id number] LOCATION:[place] [address] AGE OF PATIENT: 65 ADMISSION DATE: 06/10/20 SEX: F REFERRING PHYSICIAN: INTERPRETING PHYSICIAN: MARCO A LEE MD TRANSESOPHAGEAL ECHOCARDIOGRAM Date: 06/10/20 ODALIS CHARGE Y INDICATIONS: CABG PREMEDICATIONS: PATIENT'S RESPONSE PROCEDURE DOPPLER MEASUREMENTS: LVIT LA PA RA LVOT RVOT Asc. Ao AV Gradient Peak AV Mean AV Area MV Gradient Peak MV Mean MV Area INTERPRETATION: Doppler: 2-D: COLOR FLOW DOPPLER NORMAL SALINE STUDY: MISCELLANOUS: DIAGNOSIS: PLAN: Director [place] Sales:3 Dr. Melgar Red Hat Engineer: Мария GOLDSMITH COMMENTS: DATE OF SERVICE: 06/15/2020 PROCEDURE: Intraoperative ODALIS. Preoperatively, no LVH. LV internal dimensions are normal. Wall motion is normal. EF greater than or equal to 55%. Aortic valve is tricuspid with good valve excursion. Left atrium appears normal. Mitral valve appears normal. Trivial MR. Postoperatively, good wall motion of all cardiac segments. Normal LV function. Normal EF. Aortic valve is tricuspid with good valve excursion. TRANSESOPHAGEAL ECHOCARDIOGRAM REPORT [id number] GARCIA VILLELA Left atrium is normal. Mitral valve appears normal. Trivial MR. TRANSINT:[id number] Voice Confirmation ID: [id number] DOCUMENT ID: [id number] at 1043 CC: [id number] DICTATION DATE: 06/15/20 1234 PORT CAPTAIN: 06/15/20 1423 ADM IN [place] [address] [place] [address]
--- NOTE | 2020-06-16 10:44 | NUR ---
Nutrition Follow-up: POD 6 CABG. Pt reports good PO intake; ate majority of breakfast this AM. Diet: Diabetic Wt: 174# (06/16) Last BM: 06/15 Labs noted: Glu 121, Alb 1.7 Meds noted: Lasix, KDur, Florajen, Protonix, Senokot, Colace -RD following.
--- NOTE | 2020-06-16 15:18 | NUR ---
PATIENT UP WALKING ABOUT IN ROOM WITHOUT DIFFICULTY. SPO2 97% o2 ON HIGH FLOW 2L/MIN
--- NOTE | 2020-06-16 20:27 | MORECARE ---
CASE MANAGEMENT DISCHARGE SUMMARY PATIENT: GARCIA VILLELA UNIT: [id number] ADM DATE: 06/10/20 AGE: 65 : 53 SEX: F [facility] AUTHOR: SUYAPA RAMOS PHYSICIAN: REFERRING PHYSICIAN: RAFI RUIZ MD DATE OF SERVICE: 06/16/20 Discharge Plan Patient Name: GARCIA VILLELA Facility: [facility]:[place] : 1955 Planned Disposition: Home Anticipated Discharge Date: Discharge Date: Expected LOS: Initial Reviewer: [email or web address] Initial Review Date: 06/10/2020 Generated: 06/16/20 9:26 pm Comments DCP- Discharge Planning Updated by [email or web address]: Ann Marie Frederick on 06/16/20 7:[address] LATE ENTRY 06/15/20 Patient Name: GARCIA VILLELA Admission Status: Elective Accout number: [id number] Admission Date: 06-10-2020 : 1955 Admission Diagnosis:ATHSCL HEART DISEASE OF [place] CORONARY ARTERY W/O ANG Attending: RAFI RUIZ Current LOS: 6 Anticipated DC Date: Planned Disposition: Home Primary Insurance: MEDICARE A & B Discharge Planning Comments: CM met with patient to complete initial dc planning assessment. CM educated patient on the CM role and verbal consent given by patient to complete assessment. Patient lives at home with family. Patient is independent. At discharge patient plans to return home and feels this is a safe discharge. CM discussed availability of home health, rehab services, and medical equipment. Patient will have family to transport home. Patient denied known discharge needs at this time. CM will continue to follow and will assist as needed with dc plans/needs. Radio News Writer: Ann Marie Frederick DCPIA - Discharge Planning Initial Assessment Updated by [email or web address]: Ann Marie Frederick on 06/16/20 8:22 pm * Is the patient Alert and Oriented? Yes * How many steps to enter\exit or inside your home? * PCP RIKKI * Pharmacy [facility] * Preadmission Environment Home with Family * ADLs Independent * Equipment None * List name and contact numbers for known caregivers / representatives who currently or will assist patient after discharge: SANJUANA VILLELA - SPOUSE - [phone] * Verbal permission to speak to the caregivers and representatives has been obtained from the patient. Yes * Community resources currently utilized None * Additional services required to return to the preadmission environment? No * Can the patient safely return to the preadmission environment? Yes * Has this patient been hospitalized within the prior 30 days at any hospital? No Patient Name: GARCIA VILLELA Page [phone] at 2026 All edits/amendments must be made on the electronic document DICTATION DATE: 06/16/202026 PROCESSING REP: LORENA 06/16/202026 RPT#: [id number] DC DATE: STATUS: ADM IN [facility] [address] [place] [address] END OF REPORT
[2020-06-17] VITALS (24 sets, daily range): BP systolic 92–117; BP diastolic 50–72
[2020-06-17 03:08] LABS: IMMUNOGLOBULIN E 141 IU/mL (6-495)
[2020-06-17 06:14] LABS: HEMOGLOBIN 8.4 g/dL (12-16); MCHC 32.3 g/dL (31.0-37.0); MCV 95.9 fL (80.0-100.0); MEAN PLATELET VOLUME 9.4 fL (7.4-10.4); RBC 2.71 10x6/uL (4.00-5.40); RDW 12.5 % (11.5-14.5); WBC 8.9 10x3/uL (4.8-10.8)
--- NOTE | 2020-06-17 06:31 | NUR ---
COMPLETE CHG BATH, LINEN CHANGE, AND ORAL CARE COMPLETED
[2020-06-17 06:46] LABS: ALBUMIN 1.7 g/dL (3.4-5.0); ALKALINE PHOSPHATASE 68 U/L (30-120); ALT (SGPT) 25 U/L (10-68); BILIRUBIN - TOTAL 0.43 mg/dL (0.2-1.3); CALC OSMOLALITY 277 mosm/kg (275-300); CALCIUM 8.9 mg/dL (8.5-10.1); CARBON DIOXIDE 29.5 mmol/L (21.0-32.0); CHLORIDE - SERUM 103 mmol/L (98-107); CREATININE - SERUM 0.8 mg/dL (0.6-1.3); GLUCOSE 114 mg/dL (74-106); POTASSIUM - SERUM 3.5 mmol/L (3.5-5.1); PROTEIN - SERUM 5.7 g/dL (6.4-8.2); SODIUM 139 mmol/L (136-145); UREA NITROGEN 11 mg/dL (7-18); eGFR NON AFRICAN AMERICAN 76 mL/min (90-120)
--- NOTE | 2020-06-17 07:00 | NUR ---
REC'D REPORT AND RESUMED CARE, UP IN CHAIR WATCHING TV, DENIES PAIN AT THIS TIMEASSESSMENT COMPLETED PER FLOWSHEET
--- NOTE | 2020-06-17 13:30 | NUR ---
AMBULATED WITH PT IN UNIT, TOLERATED WITHOUT DIFFICULTY
[2020-06-18] VITALS (7 sets, daily range): BP systolic 97–122; BP diastolic 51–59
[2020-06-18 05:21] LABS: HEMATOCRIT 26.5 % (36.0-48.0); HEMOGLOBIN 8.6 g/dL (12-16); MCH 30.9 pg (26.0-34.0); MCHC 32.5 g/dL (31.0-37.0); MCV 95.3 fL (80.0-100.0); MEAN PLATELET VOLUME 8.8 fL (7.4-10.4); RBC 2.78 10x6/uL (4.00-5.40); RDW 12.5 % (11.5-14.5); WBC 7.9 10x3/uL (4.8-10.8)
[2020-06-18 05:44] LABS: ALBUMIN 1.8 g/dL (3.4-5.0); ALKALINE PHOSPHATASE 66 U/L (30-120); ALT (SGPT) 31 U/L (10-68); BILIRUBIN - TOTAL 0.62 mg/dL (0.2-1.3); CALC OSMOLALITY 286 mosm/kg (275-300); CALCIUM 9.1 mg/dL (8.5-10.1); CARBON DIOXIDE 29.8 mmol/L (21.0-32.0); CHLORIDE - SERUM 104 mmol/L (98-107); CREATININE - SERUM 0.8 mg/dL (0.6-1.3); GLUCOSE 110 mg/dL (74-106); POTASSIUM - SERUM 3.7 mmol/L (3.5-5.1); PROTEIN - SERUM 5.9 g/dL (6.4-8.2); SODIUM 144 mmol/L (136-145); UREA NITROGEN 10 mg/dL (7-18); eGFR NON AFRICAN AMERICAN 76 mL/min (90-120)
[2020-06-18] MEDS ORDERED: MUCINEX DM ER1 EAC1 PO (09:27)
[2020-06-18] MEDS ORDERED: AMIODARONE HCL200 MG PO (09:34)
[2020-06-18] MEDS ORDERED: HEMOCYTE PLUS C1 CAP PO (09:34)
[2020-06-18] MEDS ORDERED: PERCOCET 5-3251 TAB PO (09:35)
[2020-06-18] MEDS ORDERED: IPRAT-ALBUT 0.5-3 ML UPD (11:20)
[2020-06-18] MEDS ORDERED: SYMBICORT 16010.2 GM INH (11:21)
[2020-06-18] MEDS ORDERED: OMNICEF300 MG PO (11:22)
[2020-06-18] MEDS ORDERED: DOXYCYCLINE HY100 M2 PO (11:23)
--- NOTE | 2020-06-18 11:43 | NUR ---
Nutrition Follow-up: POD 8 CABG. Pt reports that she ate 100% of breakfast this AM and is being d/c'd today. Diet: Diabetic Wt: 170# (06/18) Last BM: 06/18 Labs noted: Glu 110, Alb 1.8 Meds noted: Miralax, Lasix, KDur, Protonix, Florajen, Humalog, Senokot, Colace -RD following.
--- NOTE | 2020-06-18 11:47 | MORECARE ---
CASE MANAGEMENT DISCHARGE SUMMARY PATIENT: GARCIA VILLELA UNIT: [id number] ADM DATE: 06/10/20 AGE: 65 : 53 SEX: F [facility] AUTHOR: SUYAPA RAMOS PHYSICIAN: REFERRING PHYSICIAN: RAFI RUIZ MD DATE OF SERVICE: 06/18/20 Discharge Plan Patient Name: GARCIA VILLELA Facility: [facility]:[place] : 1955 Planned Disposition: Home Anticipated Discharge Date: Discharge Date: Expected LOS: Initial Reviewer: [email or web address] Initial Review Date: 06/10/2020 Generated: 06/18/20 12:46 pm DCP- Discharge Planning Updated by [email or web address]: Ann Marie Frederick on 06/16/20 7:[address] LATE ENTRY 06/15/20 Patient Name: GARCIA VILLELA Admission Status: Elective Accout number: [id number] Admission Date: 06-10-2020 : 1955 Admission Diagnosis:ATHSCL HEART DISEASE OF [place] CORONARY ARTERY W/O ANG Attending: RAFI RUIZ Current LOS: 6 Anticipated DC Date: Planned Disposition: Home Primary Insurance: MEDICARE A & B Discharge Planning Comments: CM met with patient to complete initial dc planning assessment. CM educated patient on the CM role and verbal consent given by patient to complete assessment. Patient lives at home with family. Patient is independent. At discharge patient plans to return home and feels this is a safe discharge. CM discussed availability of home health, rehab services, and medical equipment. Patient will have family to transport home. Patient denied known discharge needs at this time. CM will continue to follow and will assist as needed with dc plans/needs. Water Resource Consultant: Ann Marie Frederick DCPIA - Discharge Planning Initial Assessment Updated by [email or web address]: Ann Marie Frederick on 06/16/20 8:22 pm * Is the patient Alert and Oriented? Yes * How many steps to enter\exit or inside your home? * PCP RIKKI * Pharmacy [facility] * Preadmission Environment Home with Family * ADLs Independent * Equipment None * List name and contact numbers for known caregivers / representatives who currently or will assist patient after discharge: SANJUANA VILLELA - SPOUSE - [phone] * Verbal permission to speak to the caregivers and representatives has been obtained from the patient. Yes * Community resources currently utilized None * Additional services required to return to the preadmission environment? No * Can the patient safely return to the preadmission environment? Yes * Has this patient been hospitalized within the prior 30 days at any hospital? No External Providers External Provider: Jacobo Next Contact Date: Service Request Date: Service Type: Resolution: Reviewer: Comments: Last DP export: 06/16/20 7:27 Patient Name: GARCIA VILLELA Page [phone] at 1147 All edits/amendments must be made on the electronic document DICTATION DATE: 06/18/201146 ENDODONTIST: LORENA 06/18/207 RPT#: [id number] DC DATE: STATUS: ADM IN [facility] [address] [place] [address] END OF REPORT
--- NOTE | 2020-06-18 12:26 | NUR ---
PATIENT IS BACK TO HER CHRONIC STABLE STATE PRIOR TO DISCHARGE. SHE HAS FINISHED HER CYCLE OF IV ANTIBIOTICS.
--- NOTE | 2020-06-18 12:35 | NUR ---
PATIENT DISCHARGED TO POV VIA W/C IN GOOD STABLE CONDITION.
--- NOTE | 2020-06-18 13:26 | MORECARE ---
CASE MANAGEMENT DISCHARGE SUMMARY PATIENT: GARCIA VILLELA UNIT: [id number] ADM DATE: 06/10/20 AGE: 65 : 53 SEX: F ROOM/BED: [facility] AUTHOR: RACHEL,DOC PHYSICIAN: REFERRING PHYSICIAN: RAFI RUIZ MD DATE OF SERVICE: 06/18/20 Discharge Plan Patient Name: GARCIA VILLELA Facility: [facility]:[place] : 1955 Planned Disposition: Home Anticipated Discharge Date: Discharge Date: 06/18/2020 Expected LOS: Initial Reviewer: [email or web address] Initial Review Date: 06/10/2020 Generated: 06/18/20 2:26 pm Comments DCP- Discharge Planning Updated by [email or web address]: Ann Marie Frederick on 06/18/20 12:[address] CM notified that patient is requiring home 02 and request for nebulizer. CM spoke with patient and TESSIE signed for [facility]. D/C IMM signed @ 1145 [facility] to deliver portable tank to room prior to discharge and will deliver concentrator and nebulizer to home. CM will continue to follow and assist as needed with discharge planning / needs. DCP- Discharge Planning Updated by [email or web address]: Ann Marie Frederick on 06/16/20 7:[address] LATE ENTRY 06/15/20 Patient Name: GARCIA VILLELA Admission Status: Elective Accout number: [id number] Admission Date: 06-10-2020 : 1955 Admission Diagnosis:ATHSCL HEART DISEASE OF [place] CORONARY ARTERY W/O ANG Attending: RAFI RUIZ Current LOS: 6 Anticipated DC Date: Planned Disposition: Home Primary Insurance: MEDICARE A & B Discharge Planning Comments: CM met with patient to complete initial dc planning assessment. CM educated patient on the CM role and verbal consent given by patient to complete assessment. Patient lives at home with family. Patient is independent. At discharge patient plans to return home and feels this is a safe discharge. CM discussed availability of home health, rehab services, and medical equipment. Patient will have family to transport home. Patient denied known discharge needs at this time. CM will continue to follow and will assist as needed with dc plans/needs. Welder Fabricator: Ann Marie Frederick DCPIA - Discharge Planning Initial Assessment Updated by [id number]: Ann Marie Frederick on 06/16/20 8:22 pm * Is the patient Alert and Oriented? Yes * How many steps to enter\exit or inside your home? * PCP RIKKI * Pharmacy [facility] * Preadmission Environment Home with Family * ADLs Independent * Equipment None * List name and contact numbers for known caregivers / representatives who currently or will assist patient after discharge: SANJUANA VILLELA - [facility] - [phone] * Verbal permission to speak to the caregivers and representatives has been obtained from the patient. Yes * Community resources currently utilized None * Additional services required to return to the preadmission environment? No * Can the patient safely return to the preadmission environment? Yes * Has this patient been hospitalized within the prior 30 days at any hospital? No Coverage Notice Reviewer: [email or web address] Frederick Notice Issued Date-Time: 06/18/2020 11:45 Notice Type: IM Discharge Notice Notice Delivered To: Patient Relationship to Patient: Self Finance Admin Name: Delivery Method: HAND - Hand Delivered Clau Days: Prior Verbal Notification: Recipient Understood Notice: Yes Recipient Signature: Yes Med Rec Note Co-signed by Attending: Coverage Notice Comment: Reviewer: [email or web address] Deborah Frederick Notice Issued Date-Time: 06/18/2020 11:45 Notice Type: Patient Choice Letter Notice Delivered To: Patient Relationship to Patient: Self Finance Admin Name: Delivery Method: HAND - Hand Delivered Clau Days: Prior Verbal Notification: Recipient Understood Notice: Yes Recipient Signature: Yes Med Rec Note Co-signed by Attending: Coverage Notice Comment: Neel PAUL export: 06/18/20 10:47 Patient Name: GARCIA VILLELA Page [phone] at 1326 All edits/amendments must be made on the electronic document DICTATION DATE: 06/18/20 1326 DENTAL LAB TECHNICIAN: LORENA 06/18/20 1326 RPT#: [id number] RI DATE:06/18/20 STATUS: DIS IN [facility] [address] [place] [address] END OF REPORT
== END 2020-06-18 12:35 | disposition home or self-care (01) | DRG 235 ==
LOC: D.SDCHOLD 06-10 05:20 → D.CVICU 06-10 05:20 → D.SDCHOLD 06-10 07:30 → D.CVICU 06-10 09:16
PROVIDERS: Internal Medicine Pulmonary Disease; ADMIT Thoracic Surgery (Cardiothoracic Vascular Surgery); ATTEND Thoracic Surgery (Cardiothoracic Vascular Surgery)
PROC: 021209W Bypass Coronary Artery, Three Arteries from Aorta with Autologous Venous Tissue, Open Approach (ICD-10-PCS; 2020-06-10)
PROC: 06BP4ZZ Excision of Right Saphenous Vein, Percutaneous Endoscopic Approach (ICD-10-PCS; 2020-06-10)
PROC: 0210099 Bypass Coronary Artery, One Artery from Left Internal Mammary with Autologous Venous Tissue, Open Approach (ICD-10-PCS; principal; 2020-06-10 07:30)
PROC: 5A1935Z Respiratory Ventilation, Less than 24 Consecutive Hours (ICD-10-PCS; 2020-06-12)
DX: I25.10 Atherosclerotic heart disease of native coronary artery without angina pectoris (principal); J96.01 Acute respiratory failure with hypoxia; J18.9 Pneumonia, unspecified organism; F17.203 Nicotine dependence unspecified, with withdrawal; D62 Acute posthemorrhagic anemia; I10 Essential (primary) hypertension; K21.9 Gastro-esophageal reflux disease without esophagitis; M19.90 Unspecified osteoarthritis, unspecified site; H26.9 Unspecified cataract; F41.8 Other specified anxiety disorders; H40.9 Unspecified glaucoma; Z87.19 Personal history of other diseases of the digestive system; E88.09 Other disorders of plasma-protein metabolism, not elsewhere classified; I95.9 Hypotension, unspecified; Y95 Nosocomial condition; E87.6 Hypokalemia; F10.10 Alcohol abuse, uncomplicated

== ENCOUNTER → 2020-11-11 08:32 | Outpatient (CLI) | payer MEDICARE, BC ==
[2020-06-11 14:54] VITALS: BMI 27.1
[~2020-11-11 08:32] MED LIST changes: +AMIODARONE HCL200 MG PO; +BUSPAR5 MG; +DOXYCYCLINE HY100 M2 PO; +HEMOCYTE PLUS C1 CAP PO; +IPRAT-ALBUT 0.5-3 ML UPD; +MUCINEX DM ER1 EAC1 PO; +NICODERM CQ1 EAC3 TOPICAL; +OMNICEF300 MG PO; +PERCOCET 5-3251 TAB PO; +PROAIR HFA8.5 G1 INH; +SYMBICORT 16010.2 GM INH
--- NOTE | 2020-11-15 08:09 | EC ---
PATIENT:GARCIA VILLELA DATE OF SERVICE: 11/11/20 SEX: F MEDICAL RECORD: [id number] DATE OF : 53 LOCATION:D[facility] AGE OF PATIENT: 65 ADMISSION DATE: 11/11/20 REFERRING PHYSICIAN: INTERPRETING PHYSICIAN: MARCO A LEE MD ECHOCARDIOGRAM REPORT ECHO CHARGES 4 ECHO COMPLETE Date: 11/11/20 CLINICAL DIAGNOSIS: ASSESS EF AND VALVES HX OF CAD/CABG ECHOCARDIOGRAPHIC MEASUREMENTS (adult normal given) AC root (d.<3.7cm) 3.6 cm LV Septum d (<1.2 cm> 1.3 cm Valve Excursion 1.6 cm LV Septum (systole) 1.7 cm Left Atria (s.<4.0cm> 3.5 cm LVPW d(<1.2cm) 1.4 cm RV (d.<2.3cm) 2.7 cm LVPW (sytole) 1.7 cm LV diastole(<5.6CM) 4.9 cm MV E-F(>70mm/sec) cm LV systole 3.6 cm LVOT Diameter 1.9 cm MV exc.(>10mm) 1.3 cm Est.ejection fraction (50-75%) % DOPPLER: LVIT cm/sec A 88.0 cm/sec E 77.0 cm/sec LA cm/sec RVSP 33 mmHg LVOT 81 cm/sec AOP1/2T m/s Asc. Ao 112 cm/sec RVOT 68 cm/sec RA cm/sec PA 89 cm/sec AV Gradient Peak 5.01 mmHg AV Mean 2.56 mmHg AV Area 1.8 cm MV Gradient Peak 5.18 mmHg MV Mean 2.73 mmHg MV Area cm COMMENTS: Blow Off Worker: 2 MATTHEW MCLEAN Microsoft Infrastructure Consultant: 3 Dr. Melgar TAPE# PACS Pericardial Effusion N DATE OF SERVICE: Adequate 2D, color-flow imaging, spectral Doppler, and M-Mode. FINDINGS: Borderline LVH. LV internal dimension is normal. Wall motion is normal. EF is greater than or equal to 55%. Aortic valve is tricuspid. No evidence of stenosis by Doppler interrogation. Left atrium is normal. Mitral valve shows no prolapse. Trace MR. Right side is grossly normal. Trace TR. TRANSINT:[id number] Voice Confirmation ID: [id number] DOCUMENT ID: [id number] ECHOCARDIOGRAM REPORT [id number] GARCIA VILLELA,MARCO A Swan MD at 0809 CC: [id number] DICTATION DATE: 11/12/20930 ASSISTANT MERCHANDISE MANAGER: 11/12/201956 DEP CLI 11/11/20 [place] [id number] [place] [address]
== END | disposition home or self-care (01) ==
LOC: D.HCCECHO 08-24 09:00
PROVIDERS: ATTEND Internal Medicine Interventional Cardiology
DX: I25.10 Atherosclerotic heart disease of native coronary artery without angina pectoris (principal)